=== PATIENT | female | born 1950 | race Caucasian/White ===

== ENCOUNTER 2022-06-12 06:33 | Outpatient (CLI) | payer MEDICARE, BC, SELFPAY ==
[2022-06-12 07:00] VITALS: BP 179/74; PULSE 59; RESP 16; TEMP 36.9; O2SAT 100
--- NOTE | 2022-06-12 07:43 | P.ORPRC_ITS ---
Procedure Note Date of procedure: 06/12/22 Procedure: PREPROCEDURE DIAGNOSIS: 1. Right hip abductor tendinopathy POSTPROCEDURE DIAGNOSIS: 1. For right hip abductor tendinopathy PROCEDURE: 1. Percutaneous tenotomy of right hip abductors near the insertion using ultrasound guidance to cut and remove the patient's pathologic tissue/tendon. SURGEON: Janak Bowser MD SURVEYOR OIL WELL DIRECTIONAL: None ANESTHESIA: Local (1% lidocaine with epi) COMPLICATIONS: None INDICATIONS FOR PROCEDURE: The patient presents with right lateral based hip pain. They point to the greater trochanter and immediate proximal posterior tissue. Despite extensive nonoperative management with physical therapy, activity modification, oral NSAIDs, cortisone injections, etc, the patient continued to have pain. An MRI was subsequently obtained and revealed moderate thickening and partial-thickness tearing of the gluteus medius tendon insertions consistent with a tendinopathy. Given these findings, and the persistent pain, intervention was recommended. DESCRIPTION OF PROCEDURE: A sterile sleeve was placed over the ultrasound transducer and the anatomy was identified and the diseased tissue was visualized/confirmed at the posterior proximal aspect of the greater trochanter. The area was prepped with sterile ChloraPrep solution. Then, the area was injected with the anesthetic noted above using a 25 gauge needle. Once the skin wheal was placed and the involved tissue anesthetized, an #11 blade was used to incise through the skin wheal, and superficial fascia. This was all targeted towards the patient's described location of maximal tenderness identified before anesthesia. To section the pathologic hip abductor tendon tissue, the Tenex T2 surgical instrument was introduced through the incision, and advanced to the disease tendon which was discovered to be hypoechoic with the ultrasound. Once the tip of the instrument was confirmed to be within the pathologic tissue, the foot pedal was depressed and the pathologic tendon was incised and allowed removal of the diseased tendon tissue. 2 minutes and 20 seconds was utilized in the right hip of cutting time. Following the procedure, Steri-Strips were placed, a small gauze and Tegaderm were placed, and the patient was awoken from anesthesia and transferred to the recovery room in stable condition. PLAN: Weightbear as tolerated operative extremities. Refrain from excessive activities including yard projects or extensive shopping. Tramadol or Tylenol for pain as needed. Ice is encouraged. Follow up with PA visit in 1-2 weeks for wound check.
== END 2022-06-12 07:45 | disposition home or self-care (01) ==
PROVIDERS: PCP Physician Assistant; Visit Provider Orthopaedic Surgery Sports Medicine
DX: M25.551 Pain in right hip (principal)
CPT/HCPCS: 27006; 76942

== ENCOUNTER 2023-01-24 08:03 | Outpatient (CLI) | payer MEDICARE, BC, SELFPAY ==
--- NOTE | 2023-01-24 08:15 | CRLHL7_ITS ---
For Patients: As a result of the Century Cures Act, medical imaging exams and procedure reports are released immediately into your electronic medical record. You may view this report before your referring provider. If you have questions, please contact your health care provider. INDICATION: Right sciatica. COMPARISON: None. TECHNIQUE: Sagittal T1, T2, and STIR sequences. Axial T1 and T2 weighted sequences. FINDINGS: Trace degenerative retrolisthesis of L1 on L2 measures approximately 3 mm. Otherwise, normal alignment. No fractures. No vertebral body loss of height. No ligamentous injury. No suspicious osseous lesions. Normal conus terminates at L1. T12-L1 L1-2: No spinal canal neural foraminal narrowing. L2-3: Grade 1 retrolisthesis. Disc degeneration posterior disc bulge. No narrowing of spinal canal. Mild narrowing of the bilateral foramina. L3-4: Disc degeneration. Diffuse disc bulge. No narrowing of spinal canal. No neural foraminal narrowing. L4-5: Mild disc degeneration posted disc bulge. No narrowing of spinal canal. No neural foraminal narrowing. Mild facet arthropathy. L5-S1: Disc degeneration diffuse disc bulge. No narrowing of spinal canal. No impingement of the traversing S1 nerve roots. No neural foraminal narrowing. Mild facet arthropathy. Degenerative changes of visualized SI joints. Normal paraspinal soft tissues. IMPRESSION: 1. Trace degenerative retrolisthesis of L1 on L2. Otherwise, normal alignment. No fractures. 2. At L2-3, grade 1 retrolisthesis. Disc degeneration and posterior disc bulge. No narrowing of the spinal canal. Mild narrowing of the bilateral neural foramina 3. No spinal canal or neural foraminal narrowing at remaining levels Dictated by Renzo Beasley MD @ 01/24/2023 3:50:37 PM (Electronically Signed)
== END 2023-01-24 08:04 | disposition home or self-care (01) ==
LOC: MRI 08:05
PROVIDERS: PCP Physician Assistant; Visit Provider Family Medicine
DX: M54.31 Sciatica, right side (principal); M51.36 Other intervertebral disc degeneration, lumbar region
CPT/HCPCS: 72148

== ENCOUNTER 2024-11-20 12:41 | Outpatient (CLI) | payer MEDICARE, BC, SELFPAY ==
--- NOTE | 2024-11-20 13:00 | MR_ITS ---
[address] [address] Phone:?[phone] Fax:?[phone] Referring Physician Information: Jackson Bagley M.D. [address] [facility] [address] Phone:?[phone] Fax:?[phone] Patient:Dora Garzon D.O.B:?1950 Sex:?Female Phone:?[phone] [facility] MRN:?[id number] Exam Date:?11/20/2024 EXAM: MRI OF THE LEFT SHOULDER CLINICAL INFORMATION: The patient is a 74-year-old with left shoulder pain. Evaluate for rotator cuff tear. PRIOR SURGERY: None reported. COMPARISON STUDIES: Comparison is made to prior radiographs dated 06/17/2024. TECHNICAL INFORMATION: Imaging was performed on a high-field, 1.5 Casi MR scanner. Axial, coronal, and sagittal proton-density and T2 imaging of the left shoulder was performed in addition to coronal STIR imaging. FINDINGS: Articular/Extraarticular collections: Effusion: Mild to moderate. Subacromial/subdeltoid: Mild fluid is seen within the subacromial/subdeltoid bursa, in keeping with mild bursitis. Subcoracoid: No evidence for bursitis. Osseous structures: Proximal humerus: No evidence for bony injury to the proximal humerus can be seen. There is no evidence for greater tuberosity fracture. No Hill-Sachs or reverse Hill-Sachs deformity is seen. Glenoid: No acute bony abnormality of the glenoid fossa or glenoid neck can be seen. Acromioclavicular joint: Mild to moderate changes of acromioclavicular joint arthrosis are present and can be seen on sagittal series 11. Coracoacromial arch: Acromion morphology: Type II. No evidence for os acromiale. Acromiohumeral space: Moderately narrowed. Coracohumeral space: Within normal limits. Rotator cuff and deltoid: Supraspinatus: The supraspinatus tendon is abnormal in appearance. There are broad-based changes of mild to moderate supraspinatus tendinosis with a superimposed focal full-thickness or near full-thickness tear of the anterior and distal tendon fibers, seen to best advantage on coronal series 5 image 12 and on sagittal series 9 image 4. The focal area of full-thickness or near full- thickness tearing measures approximately 8 mm in greatest dimension. No other full-thickness tearing of the supraspinatus tendon fibers can be seen. No atrophic changes of the supraspinatus muscle belly are identified. Infraspinatus: Mild to moderate infraspinatus tendinosis can be seen. There is no evidence for full or partial-thickness tearing. No atrophic changes of the infraspinatus muscle belly are present. Teres minor: No evidence for tendinosis, tearing, or associated muscle belly atrophy. Subscapularis: Mild to moderate subscapularis tendinosis can be seen. There is no evidence for full or partial-thickness tearing. No atrophic changes of the subscapularis muscle belly are noted. Deltoid: No evidence for strain or tearing. Biceps tendon: The intra-articular portion of the long head of the biceps tendon is not well-visualized. The biceps tendon is attenuated within the biceps sulcus. The findings are in keeping with an intra-articular rupture of the long head of the biceps tendon with subsequent retraction. Glenohumeral joint and labrum: Articular Cartilage: No well-defined full-thickness chondral defects are seen along the articular surfaces of the glenohumeral articulation. No osteoarthritic changes are seen. Labrum: Degeneration, blunting, and irregularity of the glenoid labrum can be seen without definite areas of well-defined tearing. No paralabral ganglion cyst formation is noted. Capsular Soft Tissues: No definite capsular abnormalities of the glenohumeral joint are seen. No evidence for capsular tearing is present and there are no MR signs of adhesive capsulitis. CONCLUSION: 1. Mild to moderate supraspinatus, infraspinatus, and subscapularis tendinosis with superimposed full-thickness or near full-thickness tearing involving the anterior and distal supraspinatus tendon fibers as described above. 2. Suspected intra-articular rupture of the long head of the biceps tendon with subsequent retraction. 3. 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 4. Mild to moderate glenohumeral joint effusion and mild subacromial/subdeltoid bursitis. 5. No osteoarthritic changes of the glenohumeral articulation are seen. [facility] Electronically signed on 11/20/2024 2:58:00 PM by Ramos Mayfield M.D.
== END 2024-11-20 12:42 | disposition home or self-care (01) ==
LOC: MRI 12:43
PROVIDERS: PCP Family Medicine; Visit Provider Orthopaedic Surgery
DX: M25.512 Pain in left shoulder (principal); M75.102 Unspecified rotator cuff tear or rupture of left shoulder, not specified as traumatic; M19.012 Primary osteoarthritis, left shoulder; M25.412 Effusion, left shoulder
CPT/HCPCS: 73221

== ENCOUNTER 2024-12-18 06:38 | Day surgery (SDC) | payer MEDICARE, BC, SELFPAY ==
[2024-12-18] VITALS (16 sets, daily range): BP systolic 106–169; BP diastolic 48–83; PULSE 50–90; RESP 13–23; TEMP 36.2–36.5; O2SAT 95–100; BMI 28.5
--- OUTSIDE RECORDS SUMMARY | 2024-12-18 06:42 | XMS_ITS | Continuity of Care Document ---
Author Organization [facility] Address [address] [place] [address] Phone Care Team Providers Care Brewery Technician Name Role Phone Mark Ruiz DO Unavailable Unavailable Advance Directives Directive Yes / No Effective Date File Name No Information Encounters Encounter Description Practice Location Reason(s) For Visit Diagnoses Date Provider Providers Copied on Encounter [facility], [address], [place], [address], [place] tel:[phone] [facility], No Information [phone] [address] Flores. [facility] [address], [place], [address], [place]. tel:[phone] Family History Family Member Type Diagnosis Age At Onset No Information Payers Payer name Insurance type Covered green party ID Authoriza tion(s) No Information Social History Type Description Quantity Date Captured Comments Sex Female Smoking Status No Information Chief Complaint And Reason For Visit No Information Reason For Referral Reason For Referral No Information History Of Present Illness Encounter Date Complaint History Of Prese nt Illness No Information Functional Status Date Functional Assessmen t No Information Instructions Date Instruction Additional Infor mation No Information Assessments Type Assessment Date No Information Patient Care Teams Name Effective Dates (start - stop) Status Members No Information
--- OUTSIDE RECORDS SUMMARY | 2024-12-18 06:42 | XMS_ITS | Clinical Summary ---
Author Organization [facility] Address [place], [place] [address] Care Team Providers Care Target Network Analyst Name Role Phone Baldemar Cano PA Unavailable [phone] Yoli Pressley DO Primary Care Provider [phone] Allergies No known active allergies Medications ZYRTEC 10 MG TAB take 1 tablet (10 mg) by oral route once daily 30 0 7 Active CALCIUM 600 + D(3) 600 MG (1,500)-200 UNIT TAB take one tablet by oral route daily 0 9 Active MISCELLANEOUS MEDICAL SUPPLY (GRADUATED COMPRESSION STOCKINGS) For personal use. Length: calf Strength: 20-30 mmHg 4 Packet 4 2 Active ibuprofen (ADVIL; MOTRIN) 600 mg tabletIndication s:Closed fracture of distal end of radius, unspecified fracture morphology, initial encounter,Chest wall contusion, right, initial encounter,Sprain of right shoulder, unspecified shoulder sprain type, initial encounter Take 1 tablet by mouth 4 times daily if needed. Maximum of 3200 mg in 24 hours. 40 tablet 7 Active acetaminophen (TYLENOL ARTHRITIS ORAL) Take by mouth. Active melatonin 5 mg tab tablet Take 5 mg by mouth at bedtime if needed for Sleep. Active biotin (Hair, Skin and Nails, biotin,) 10,000 mcg chew Chew by mouth. Active famotidine (PEPCID) 20 mg tabletIndication s:Chronic GERD Take 1 Tablet (20 mg) by mouth 2 times daily if needed for Heartburn. 90 Tablet 3 5 Active alendronate (FOSAMAX) 70 mg tabletIndication s:Osteoporosis, unspecified osteoporosis type, unspecified pathological fracture presence Take 1 Tablet (70 mg) by mouth once a week in the morning. Take on empty stomach with full glass of water. Do not lie down for 1 hr. 12 Tablet 3 5 Active omeprazole 20 mg tabletIndication s:Chronic GERD Take 1 Tablet (20 mg) by mouth once daily if needed (heartburn). 90 Tablet 3 5 Active omeprazole 20 mg tabletIndication s:Chronic GERD Take 1 Tablet (20 mg) by mouth once daily if needed (heartburn). 90 Tablet 4 11/28/19 25 Discontinu ed(*Availa bility/For mulary change/Cos t of medication ) Active Problems Problem Noted Date Diagnosed Date Osteoporosis 11/25/2024 Compression fracture of thor acic vertebra with routine healing 03/07/2021 11/12/2020 Irritable bowel syndrome with diarrhea 9 Overview (11/11/2020): Controlled with diet. Triggers include: Tylenol arthritis Ibuprofen Watermelon Diet soda/caffeine Chronic right hip pain 08/13/2019 Chronic pain of right knee 08/13/2019 Trochanteric bursitis of right hip 08/13/2019 Hip abductor tendinitis, right 08/13/2019 Pes anserinus tendinitis of right lower extremit y 08/13/2019 Arthritis of right knee 08/13/2019 Arthritis of left knee 08/13/2019 Spondylolisthesis of lumbar region 11/07/2018 Chronic bilateral low back pain axial 11/07/2018 H/O colonoscopy 07/10/2013 Overview (07/10/2013): Normal in 2009: due in 2019 RLS (restless legs syndrome) 03/21/2013 Venous insufficiency 08/01/2012 Vitamin D deficiency 01/22/2009 Allergic rhinitis, cause unspecified 01/11/2008 Backache, unspecified 09/04/2006 Overview (09/04/2006): chronic recurrent back pain Resolved Problems Problem Noted Date Diagnosed Date Resolved Date Osteopenia of multiple sites 03/22/2017 11/25/2024 Symptomatic menopausal or fe male climacteric states 09/04/2006 11/12/2020 Encounters Date Type Department Care Team Description 12/16/2024 11:00 AM CHEMICAL OPERATOR Office Visit [address] [address] Yoli Pressley DO Pre-Op Exam 12/16/2024 Travel 12/10/2024 Travel 12/09/2024 Transcribe Orders [facility] [place], [address] [facility] [address] [place] [address] Jackson Bagley MD 11/26/2024 Orders Only [address] [address] Yoli Pressley DO <No scans attached> 11/26/[address] [address] Yoli Pressley DO Refill Request (Omeprazole) 11/20/2024 Orders Only [facility] [address] [place] [address] [address] [place] [address] Yoli Pressley DO Lab 11/18/2024 8:30 AM CHEMICAL OPERATOR Office Visit [address] [address] Yoli Pressley DO Medicare ANNUAL (subsequent) Visit 11/18/2024 Travel 11/08/2024 11:55 AM CHEMICAL OPERATOR Office Visit [facility] [address] [place] [phone] Phyllis Anderson NP Covid-19 Positive Result (Patient presents to ambulatory urgent care today with C/O having a positive COVID-19 test at home this morning. Onset of symptoms 12/07/2024 with a headache. She is here for plaxovid./) 11/08/2024 Travel 10/27/2024 Refill [address] [address] [place] [address] Yoli Pressley, DO Refill Request (famotidine) 10/16/2024 Refill [facility] [address] [place] [address] Yoli Pressley, DO Refill Request (Prilosec) 09/18/2024 9:45 AM CHEMICAL OPERATOR Office Visit [facility] [place] [address] [address] [place] [address] Shon Uribe, ALEXANDREA Consult (Bilateral foot pain) 09/18/2024 Travel 09/17/2024 Travel from Last 3 Months Immunizations Name Administration Dates Next Due COVID-19 vaccine (Moderna 10 0mcg/0.5mL) PF, MDV 01/28/2021,12/31/2020 Influenza, High-dose Inactivated 09/18/2016,07/2014 Influenza, High-dose Quadriv alent Inactivated 07/21/2020 Influenza, IIV3 (Age >=3 years) 09/15/2006,09/20,09/29/2003 Influenza, IIV4 08/26/2021 Influenza, Inactivated AIIV4 (Age 65+ Years) Preserv Free 09/24/2023,08/28/2022 Influenza, Inactivated IIV3 (Age 65+ Years) Preserv Free 09/14/2024,08/11/2019 Pneumococcal Poly,23-Valent (Pneumovax) 08/13/20 14 Pneumococcal conj 13-Valent (Prevnar 13) 016 Td (Age >=7 Years) 11/24/2002,02/21/1991 Tdap 01/22/2024,06/20/2012 Zoster (Shingrix-RZV, recombinant) 03/03/2020, Zoster (Zostavax-ZVL, live) 05/26/2011 Family History Medical History Relation Name Comments Heart Disease Mother Other Mother renal stenosis Cancer-breast Paternal Grandmother Cancer Sister 1 lung Cancer-breast Sister 1 diagnosed at a ge 56 in 2002, one lymph node positive Cancer Sister 3 ovarian cancer at age 40 Relation Name Status Comments Father of emphyse ma Mother Paternal Grandmother Sister 1 Sister 2 (Age 40) ovarian ca ncer Sister 3 Social History Tobacco Use Types Packs/Day Years Used Date Smoking Tobacco: Never Passive Smoke Exposure: Past Smokeless Tobacco: Never Tobacco Cessation:Counseling Given: Not Answered Alcohol Use Standard Drinks/Week Comments Yes 0 (1 standard drink = 0.6 oz pur e alcohol) rarely PHQ-2 Answer Date Recorded PHQ-2 TOTAL SCORE 0 11/18/2024 Financial Resource Strain Answer Date R ecorded Difficulty of Paying Living Expenses Not on file 11/01/2021 Difficulty of Paying Living Expenses Not on file 11/01/2021 Comments No Sex and Gender Information Value Date Recorded Sex Assigned at Not on file Legal Sex Female 5:23 AM CHEMICAL OPERATOR Gender Identity Not on file Sexual Orientation Not on file Occupation Industry Job Start Date Job End Date retired Not on file Not on file Not on file Obstetrics History Para Term AB IAB SAB Ectopic Multiple Livin g Live Births 5 3 0 2 2 3 Date Outcome GA Total Labor Labor/2nd/3rd Weight Sex Type Anes PTL Chloe A1 A5 Name Clin SAB SAB Para Para Para Last Filed Vital Signs Vital Sign Reading Time Taken Comments Blood Pressure 128/66 12/16/2024 11:10 AM CHEMICAL OPERATOR Pulse 66 12/16/2024 11:10 AM CHEMICAL OPERATOR Temperature 36.7 C (98 F) 11/08/2024 11:57 AM CHEMICAL OPERATOR Respiratory Rate 19 11/08/2024 11:5 7 AM CHEMICAL OPERATOR Oxygen Saturation 97% 11/08/2024 11: 57 AM CHEMICAL OPERATOR Inhaled Oxygen Concentration - - Weight 64.3 kg (141 lb 12.8 oz) 025 11:10 AM CHEMICAL OPERATOR Height 152 cm (4' 11.84) 12/16/2024 11 :10 AM CHEMICAL OPERATOR Body Mass Index 27.84 12/16/2024 11:10 AM CHEMICAL OPERATOR Plan of Treatment Upcoming Encounters Date Type Department Care Team (Late st Contact Info) Description 12/31/2024 9:30 AM CHEMICAL OPERATOR Appointment [facility] [place] [address] [place] [address] Sumit Fletcher, PT [address] [place] [address] 01/06/2025 9:30 AM CHEMICAL OPERATOR Appointment [address] [address] Sumit Fletcher, PT [address] [place] [address] 01/13/2025 9:30 AM CDT Appointment [address] [address] Sumit Fletcher, PT [address] [place] [address] Health Maintenance Due Date Last Done Comments RSV vaccine for adults or (1 - 1-dose 75+ series) 2024 Depression screening for age 12+ 11/18/2025 11/18/2024, 10/25/2023, 10/23/2023, Additional history exists Medicare Wellness for age 65+ 11/19/2025, 10/23/2023, 10/20/2022, Additional history exists Fecal testing non-DNA (FIT,FOBT,iFOBT) for age 45-75 11/20/2025 11/20/2024, 10/25/2023, 10/24/2022, Additional history exists BMI (ht and wt on same day) for age 18+ 12/16/2025 12/16/2024, 11/18/2024, 10/23/2023, Additional history exists Lipids for age 45-75 11/18/2029 11/18/2024, 10/23/2023, 10/20/2022, Additional history exists Tetanus booster 01/21/2034 01/22/2024, 06/05, 11/24/2002, Additional history exists Pneumococcal series for age 50+ Completed 6, 08/13/2014 Hepatitis C screening for ag e 18-79 Completed 08/11/2019 Zoster (shingles) series for age 50+ Completed 03/03/2020, 08/29/2019, 05/26/2011 DEXA/DXA scan for age 65+ Completed 2023, 04/16/2017, 10/31/2013, Additional history exists Tdap Completed 01/22/2024, 06/20/2012 Influenza for age 65+ Completed 09/14/2024 , 09/24/2023, 08/28/2022, Additional history exists COVID-19 vaccine series Completed 09/21/20, 08/08/2023, 09/07/2021, Additional history exists Procedures Procedure Name Priority Date/Time Associated Diagnosis Comments OCCULT BLOOD IFOBT STOOL Routine 11/20/2024 12:00 PM CHEMICAL OPERATOR Screening for colon cancer VITAMIN D 25 (DEFICIENCY) Routine 11/18/2024 9:50 AM CHEMICAL OPERATOR Vitamin D deficiency COMP METABOLIC PANEL Routine 11/18/2024 9:50 AM CHEMICAL OPERATOR Screening for diabetes mellitus (DM) Osteopenia of multiple sites Elevated cholesterol LIPID PANEL W REFLEX MEASURED LDL Routine 11/18/2024 9:50 AM CHEMICAL OPERATOR Elevated cholesterol TSH WITH REFLEX Routine 11/18/2024 9:50 AM CHEMICAL OPERATOR Weight loss CREATININE STAT 11/08/2024 1:51 PM CHEMICAL OPERATOR Positive self-administered antigen test for COVID-19 XR DXA BONE DENSITY 2 SITES AXIAL Routine 11/09/2023 1:11 PM CHEMICAL OPERATOR Osteoporosis, unspecified osteoporosis type, unspecified pathological fracture presence ANTI HCV Routine 08/11/2019 12:30 PM CDT Need for hepatitis C screening test from Last 3 Months or Most Recently Relevant to Health Maintenance Results * OCCULT BLOOD IFOBT STOOL (11/20/2024 12:00 PM CHEMICAL OPERATOR) STOOL BLOOD ,IFOBT Negative Negative 11/26/2024 10:21 PM CHEMICAL OPERATOR [facility] Stool STOOL SPECIMEN / Unknown Non-Blood / Unknown 11/20/2024 12:00 PM CHEMICAL OPERATOR 11/26/2024 9:49 PM CHEMICAL OPERATOR Yoli Pressley DO LABORATORY Final Result [facility] [address] [place] [address], [place] * TSH WITH REFLEX (11/18/2024 9:50 AM CHEMICAL OPERATOR) TSH W/REFLEX TO FT4 1.79 0.40 - 4.50 mIU/L [facility] Blood BLOOD SPECIMEN / Unknown 11/18/2024 9:50 AM CHEMICAL OPERATOR 11/18/2024 9:51 AM CHEMICAL OPERATOR Narrative [facility] - 11/19/2024 5:01 AM CHEMICAL OPERATOR FASTING:YES FASTING: YES Yoli Pressley DO CHEMISTRY Final Result Performing Organization Address City/[facility]/ZIP Co de Phone Number [facility] [address] [place] [address], [facility] [address] [place] [address] * (ABNORMAL) LIPID PANEL W REFLEX MEASURED LDL (11/18/2024 9:50 AM CHEMICAL OPERATOR) CHOLESTEROL, TOTAL 249(H) <200 mg/dL [facility] HDL CHOLESTEROL 67 > OR = 50 mg/dL [facility] TRIGLYCERIDES 116 <150 mg/dL [facility] LDL-CHOLESTEROL 159(H) mg/dL (calc) [facility] Comment: Reference range: <100 Desirable range <100 mg/dL for primary prevention; <70 mg/dL for patients with CHD or diabetic patients with > or = 2 CHD risk factors. LDL-C is now calculated using the Marva calculation, which is a validated novel method providing better accuracy than the Friedewald equation in the estimation of LDL-C. Naresh REEDER et al. HEATHER. 2013;310(19): 5191-5950 (http://education.[employer]/faq/DCE217) CHOL/HDLC RATIO 3.7 <5.0 (calc) [facility] NON HDL CHOLESTEROL 182(H) <130 mg/dL (calc) [facility] Comment: For patients with diabetes plus 1 major ASCVD risk factor, treating to a non-HDL-C goal of <100 mg/dL (LDL-C of <70 mg/dL) is considered a therapeutic option. Blood BLOOD SPECIMEN / Unknown 11/18/2024 9:50 AM CHEMICAL OPERATOR 11/18/2024 9:51 AM CHEMICAL OPERATOR Narrative [facility] - 11/19/2024 3:58 AM CHEMICAL OPERATOR FASTING:YES FASTING: YES Yoli Pressley DO CHEMISTRY Final Result [facility] [address] [place] [address], [facility] [address] [place] [address] * VITAMIN D 25 (DEFICIENCY) (11/18/2024 9:50 AM CHEMICAL OPERATOR) VITAMIN D,25-OH,TOTAL,IA 36 30 - 100 ng/mL [facility] Comment: Vitamin D Status 25-OH Vitamin D: Deficiency: <20 ng/mL Insufficiency: 20 - 29 ng/mL Optimal: > or = 30 ng/mL For 25-OH Vitamin D testing on patients on D2-supplementation and patients for whom quantitation of D2 and D3 fractions is required, the Contact At [facility]() 25-OH VIT D, (D2,D3), LC/MS/MS is recommended: order code [id number] (patients >2yrs). See Note 1 Note 1 For additional information, please refer to http://education.[employer]/faq/KYR335 (This link is being provided for informational/ educational purposes only.) Blood BLOOD SPECIMEN / Unknown 11/18/2024 9:50 AM CHEMICAL OPERATOR 11/18/2024 9:51 AM CHEMICAL OPERATOR Narrative [facility] - 11/19/2024 5:01 AM CHEMICAL OPERATOR FASTING:YES FASTING: YES Netta Huan DO SEND OUTS Final Result [facility] [address] [place] [address], [facility] [address] [place] [address] * COMP METABOLIC PANEL (11/18/2024 9:50 AM CHEMICAL OPERATOR) GLUCOSE 73 65 - 99 mg/dL [facility] Comment: Fasting reference interval UREA NITROGEN (BUN) 10 7 - 25 mg/dL [facility] CREATININE 0.68 0.60 - 1.00 mg/dL [facility] EGFR 91 > OR = 60 mL/min/1. 73m2 [facility] BUN/CREATININE RATIO SEE NOTE: 6 - 22 (calc) [facility] Comment: Not Reported: BUN and Creatinine are within reference range. SODIUM 139 135 - 146 mmol/L [facility] POTASSIUM 4.7 3.5 - 5.3 mmol/L [facility] CHLORIDE 101 98 - 110 mmol/L [facility] CARBON DIOXIDE 30 20 - 32 mmol/L [facility] CALCIUM 9.1 8.6 - 10.4 mg/dL [facility] PROTEIN, TOTAL 7.1 6.1 - 8.1 g/dL [facility] ALBUMIN 4.3 3.6 - 5.1 g/dL [facility] GLOBULIN 2.8 1.9 - 3.7 g/dL (calc) [facility] ALBUMIN/GLOBULIN RATIO 1.5 1.0 - 2.5 (calc) [facility] BILIRUBIN, TOTAL 0.4 0.2 - 1.2 mg/dL [facility] ALKALINE PHOSPHATASE 56 37 - 153 U/L [facility] AST 16 10 - 35 U/L [facility] ALT 12 6 - 29 U/L [facility] Blood BLOOD SPECIMEN / Unknown 11/18/2024 9:50 AM CHEMICAL OPERATOR 11/18/2024 9:51 AM CHEMICAL OPERATOR Narrative [facility] - 11/19/2024 3:58 AM CHEMICAL OPERATOR FASTING:YES FASTING: YES Yoli Pressley DO CHEMISTRY Final Result [facility] [address] [place] [address], [facility] [address] [place] [address] * (ABNORMAL) CREATININE (11/08/2024 1:51 PM CHEMICAL OPERATOR) [facility] eGFR 87(L) >90 mL/min/1.7 3m2 11/08/2024 2:23 PM CHEMICAL OPERATOR [facility] Comment:As of 2022, eG FR is calculated by the CKD-EPI creatinine equation without race adjustment. eGFR can be influenced by muscle mass, exercise, and diet. The reported eGFR is an estimation only and is only applicable if the renal function is stable. CREATININE 0.72 0.50 - 0.90 mg/dL 11/08/2024 2:23 PM CHEMICAL OPERATOR [facility] Blood BLOOD SPECIMEN / Unknown [facility] / Unknown 11/08/2024 1:51 PM CHEMICAL OPERATOR 11/08/2024 1:51 PM CHEMICAL OPERATOR Phyllis Anderson NP CHEMISTRY Final Result [facility] [address] [place] [address] * XR DXA BONE DENSITY 2 SITES AXIAL (11/09/2023 1:11 PM CHEMICAL OPERATOR) Anatomical Region Laterality Modality Spine, HIPS, HIPL, HIPR Computed Radiography Impressions 11/09/2023 4:48 PM CHEMICAL OPERATOR Osteoporosis due to history of wrist fracture. Bone density has increased significant with Alendronate. RECOMMENDATIONS: The National Osteoporosis Foundation recommends pharmacologic treatment for patients with T-scores of -2.5 or less, patients with prior history of fragility fractures, or patients with 10-year probability of greater than 3% at hips or greater than 20% of suffering major osteoporotic fractures. Recommend continued optimization of calcium and vitamin D intake through dietary means and/or supplementation and regular exercise. Continue current Alendronate (Fosamax) medication treatment. Narrative 11/09/2023 4:48 PM CHEMICAL OPERATOR For Patients: Results are automatically released to your [employer] account once available, in compliance with federal regulations. This means that you may see your results before your provider has had a chance to review them. Please allow 2-3 business days for your provider to comment on the results. XR DXA Bone Mineral Density (BMD) EXAM LOCATION: [address] [address] PATIENT NAME: Malou Garzon DATE OF : 1950 EXAM DATE: 11/09/2023 REQUESTING PROVIDER: Jamaal Allen DO GENDER AT : female HEIGHT: 4' 11.75 (10/23/2023) WEIGHT: 158 lb (10/23/2023) MENOPAUSAL STATUS: Postmenopausal RACE/ETHNICITY: White RISK FACTORS: Family History of Hip Fracture (parental), Height Loss (2 inches or more), History of Fragility Fracture (at a major site), Low Calcium Intake CURRENT MEDICATION FOR BONE LOSS: Alendronate (Fosamax) INDICATION: Follow-up of existing osteopenia COMPARISON DATE(S): 2012 DXA scans are compared to prior studies for a patient only when the two (or more) studies were performed on the same scanner. It is not possible to compare data generated on one scanner to data from another because there are not standards in DXA equipment. This applies even if the two scanners are made by the same candle wrapping machine operator. PROCEDURE: Dual-energy x-ray absorptiometry performed with routine technique. Reporting is completed in the form of a T-score. The T-score represents the standard deviation from peak bone mass based on young healthy adult. A Z-score is used for diagnosis in premenopausal women, and for men under the age of 50. FINDINGS: RESULT LUMBAR SPINE L1 - L4 BMD: 1.163 g/cm2 T-Score: - 0.1 Change from prior in 2013: Increase 6.2%. RESULTS FEMUR Left femoral neck BMD: 0.754 g/cm2 T-Score: - 2.0 Change from prior in 2013: Increase 5.0%. Right femoral neck BMD: 0.745 g/cm2 T-Score: - 2.1 Change from prior in 2013: Increase 3.5%. Left hip BMD: 0.832 g/cm2 T-Score: - 1.4 Change from prior in 2013: Increase 3.9%. Right hip BMD: 0.843 g/cm2 T-Score: - 1.3 Change from prior in 2013: Increase 8.6%. WHO criteria: Normal: T-score at or above -1 SD Osteopenia: T-score between -1.1 and -2.4 SD Osteoporosis: T-score at or below -2.5 SD us Jamaal Allen DO DEXA Final Res ult * ANTI HCV (08/11/2019 12:30 PM CDT) HEPATITIS C ANTIBODY Non-React stefan Non-React stefan 08/11/2019 9:04 PM CDT [facility] Comment:Antibodies to HCV no t detected; does not exclude the possibility of exposure to HCV. Blood BLOOD SPECIMEN / Unknown Venipuncture / Unknown 08/11/2019 12:30 PM CDT 08/11/2019 12:31 PM CDT us Roxana BILLS SEND OUTS Final Resu lt [facility] 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
[2024-12-18] MEDS: CELECOXIB 200 MG CAPSULE PO (07:37)
[2024-12-18] MEDS: ACETAMINOPHEN 500 MG TABLET 1000 MG PO (07:37)
[2024-12-18] MEDS: OXYCODONE (CR) 10 MG TAB.ER.12H PO (07:38)
[2024-12-18] MEDS: SODIUM CHLORIDE 0.9 % (FLUSH) 10 ML SYRINGE IVF (07:38)
[2024-12-18] MEDS: LACTATED RINGERS 1000 ML 1,000 ML 100 ML IV (07:38)
[2024-12-18] MEDS: MIDAZOLAM HCL 1 MG/ML inj IVP (07:55)
[2024-12-18] MEDS: fentaNYL 100 MCG/2 ML inj IVP (07:55)
--- NOTE | 2024-12-18 07:59 | SUR.PREOP ---
TIME?OUT:?0750, left shoulder PT/RN/MDA?VERIFICATION?OF?SURGICAL?SITE,?PROCEDURE,?AND?CONSENT OBTAINED?PRIOR?TO?INVASIVE?PROCEDURE.
[2024-12-18] MEDS: CEFAZOLIN 2 GM INJ IVP (09:10)
--- NOTE | 2024-12-18 09:29 | W.ANESCHARGE ---
Anesthesia Charges Start Date/Time Anesthesia Start Date: 12/18/24 Anesthesia Start Time: 09:03 Stop Date/Time Anesthesia Stop Date: 12/18/24 Anesthesia Stop Time: 11:00 Summary Extremes of Age - Over 70 or under 1: MDA Coding CPT Codes CPT Codes: ANESTH SURGERY OF SHOULDER - 77626 ([id number]) QK - DEVELOPER PROGRAMMER ANALYST 2-4 CNCRNT ANES PROC, QX - SENIOR RADIATION THERAPIST SVC W/ MD MED DIRECTION, P1 - NORMAL HEALTHY PATIENT Additional Codes: Summary - Extremes of Age - Over 70 or under 1: MDA ([id number])
--- NOTE | 2024-12-18 09:29 | W.PM.NB ---
Nerve Block Nerve Block Time Seen by Provider: 07:55 Date Seen: 12/18/24 Type of block requested by surgeon for post-operative analgesia: supraclavicular Side: left Time out performed: Yes Verification of patient name: Yes Verification of date of : Yes Site marking: site marked Name of person performing procedure: Nando Continuous monitoring Was continuous monitoring of O2 sat, B/P, television cameraman, recorded every 15 minutes?: Yes Procedure Checklist: sterile prep, needles and gloves Ultrasound guided. Images saved: Yes Medications given in 5ml increments after negative aspiration: Ropivicaine %: 0.5 mL: 20 Needle gauge: 22 Precedex (mcg): 25 Patient tolerated procedure well: Yes Block Charges Block Charge (with Pro Fee): Brachial Plexus Use of Ultrasound Machine for Block: Yes- US Guidance/pain block
--- NOTE | 2024-12-18 10:44 | PM.ORPRC ---
Procedure Note Date of procedure: 12/18/24 Procedure: PREOPERATIVE DIAGNOSIS: Left shoulder rotator cuff tear, AC joint arthrosis POSTOPERATIVE DIAGNOSIS: Left shoulder rotator cuff tear, AC joint arthrosis NAME OF OPERATION: Left shoulder arthroscopic subacromial decompression, distal clavicle excision, mini open rotator cuff repair, limited glenohumeral joint debridement SURGEON: Jackson Bagley MD HAND ZIPPER TRIMMER: Jennifer Tyler PA-C ANESTHESIA: Supraclavicular block plus general endotracheal ESTIMATED BLOOD LOSS: 5 mL COMPLICATIONS: None SPECIMENS: None DRAINS: None PREOPERATIVE ANTIBIOTICS: Ancef 1 g INDICATIONS: The patient is a 74-year-old with a history of left shoulder pain secondary to the above diagnoses. Despite appropriate non operative management, they continue to have symptoms. Operative intervention was recommended. The risks, benefits and expected outcomes were discussed in detail. These included but were not limited to: Infection, bleeding, injury to blood vessel or nerve, venous thromboembolism. All questions were answered to their satisfaction. PROCEDURE: A supraclavicular block was placed by Anesthesia. General anesthesia was administered. The patient was placed in the high beach chair position. The left shoulder was prepped and draped in the usual sterile fashion. The glenohumeral joint was infiltrated with 20 mL of normal saline with epinephrine. The posterior portal was established, the arthroscope was introduced. The anterior portal was established, Diagnostic arthroscopy was performed with findings as follows: The biceps is torn and retracted out of the glenohumeral joint. There was a small stump remaining at the origin. The labrum shows age-appropriate circumferential degenerative fraying. Articular surfaces on the humeral head shows a small patch of grade 2/3 change, articular surface on the glenoid shows a small patch of grade 3 change. There are no loose bodies. There is a full-thickness tear of the supraspinatus. The arthroscope was placed in the subacromial space, the lateral portal was established. The Arthrex [place] was used to dissect the acromion free. The CA ligament was recessed off the anterior acromion, the AC joint was exposed. The acromioplasty was performed with the bur in the posterior portal. The bur was then placed in the lateral portal and the lateral and anterior aspect of the acromion were resected. The undersurface of the distal clavicle was resected through the lateral portal. Finally, the bur was placed in the anterior portal and the remainder of the distal clavicle was resected for a total of 10 mm. An accessory anterolateral portal was placed. The subacromial/subdeltoid bursa was aggressively debrided. The bursal surface of the supraspinatus has a few intact fibers. Arthroscopic instruments were removed. The accessory anterolateral portal was extended proximally and distally, subcutaneous dissection was taken with electrocautery to the deltoid. The deltoid was divided in line with its fibers. The static retractor was placed. The subacromial/subdeltoid bursa was debrided with the Hooker scissors. The few remaining fibers of the insertion of the supraspinatus were released with the scalpel. The greater tuberosity was debrided to punctate bleeding bone using the arthroscopic bur. Two Arthrex [employer] SwiveLock anchors were placed just off the articular surface. Both limbs of the FiberWire and fiber tape were passed using the scorpion. A fiber link was placed in the leading edge of the rotator cuff x2. We tied the 2 central FiberWire sutures over the rotator cuff. We then proceeded with a lateral row of SwiveLock anchors x 2 crossing the FiberTape and incorporating the FiberWire and fiber link into each lateral row anchor. This provides an anatomic, watertight repair of the rotator cuff. There is no tension on the repair with the shoulder at 0? abduction. The wound was irrigated with normal saline off the pump. The deltoid was repaired with an 0 Vicryl in an interrupted [id number] fashion. Subcutaneous tissues were closed with a 3-0 Vicryl. Skin was closed with a 3-0 Monocryl in a subcuticular fashion. A dry dressing and sling were applied. Sponge and needle counts were correct x2. The patient tolerated the procedure well. There were no apparent complications. They were carefully transferred to the hospital bed and taken to the postanesthesia care unit in satisfactory condition. PLAN: The patient will be discharged to home. No active range of motion of the shoulder will be allowed for 6 weeks postoperatively. They can work on active range of motion of the elbow, wrist and fingers. They will follow up in the office next week for a wound check and an AP and transscapular Y-view of the shoulder prior to being seen.
--- NOTE | 2024-12-18 11:02 | W.ANESCHARGE ---
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
--- NOTE | 2024-12-18 11:35 | SUR.PHASEI ---
Patient met discharge criteria per anesthesia.
== END 2024-12-18 12:39 | disposition home or self-care (01) ==
LOC: OR 06:40
PROVIDERS: PCP Family Medicine; Visit Provider Orthopaedic Surgery
PROC: (CPT 23412; principal; 2024-12-18 08:00)
DX: M75.102 Unspecified rotator cuff tear or rupture of left shoulder, not specified as traumatic (principal); M19.012 Primary osteoarthritis, left shoulder; G89.18 Other acute postprocedural pain
CPT/HCPCS: 29826; 29824; 29822; 23412; 01630; 64415; 76942; 99100; A9270; C1713; J0330; J0690; J2250; J2405; J2704; J2795; J3010; J7120